=== PATIENT | female | born 1960 | race Caucasian/White ===

== ENCOUNTER 2018-03-21 18:32 | Emergency (ER) | payer OTHER ==
[2018-03-21 19:15] VITALS: BP 179/50; PULSE 66; TEMP 97.8; BMI 56.5
--- NOTE | 2018-03-21 19:52 | PDOC ---
History of Present Illness - General Chief Complaint: Pain Stated Complaint: RIGHT SIDE PAIN Time Seen by Provider: 03/21/18 19:51 History Source: Patient Exam Limitations: No Limitations - History of Present Illness Initial Comments: 57 y/o female presenting to [facility] ER complaining of lower right quadrant abdominal pain, which started spontaneously this morning and has increased in intensity. Unable to recall what she was doing when it started. It now radiates to her right flank/lower back and to the top of the right leg. Pain is made worse with movement. Denies h/o similar. Denies trauma, recent illness, symptoms, or GI symptoms. Normal bowel movements. PCP: Dr. Greer Medical Hx: - COPD - Rapid A-fib s/p ablation - Morbid Obesity s/p gastric bypass Surgical Hx: - Total Hysterectomy - Gastric Bypass, 8-9 years ago at [facility] - Cholecystectomy - Bladder Sling Past History - Past Medical History Allergies/Adverse Reactions: Allergies Allergy/AdvReac Type Severity Reaction Status Date / Time iodine Allergy Severe Verified 03/21/18 19:15 Penicillins Allergy Severe Verified 03/21/18 19:15 shellfish derived Allergy Severe Verified 03/21/18 19:15 Home Medications: Ambulatory Orders Aspirin [ASA -] 81 mg PO DAILY 09/27/13 Diltiazem [Cardizem -] 180 mg PO HS 09/27/13 Fluticasone/Salmeterol [Advair Hfa 115-21 Mcg Inhaler] 1 inh PO PRN PRN Tiotropium [place] [Spiriva -] 1 inh PO PRN PRN 09/27/13 Cholecalciferol (Vitamin D3) [Vitamin D] 1,000 unit PO DAILY 10/18/15 Cyanocobalamin [Vitamin B12 -] 100 mcg PO DAILY 10/18/15 Ferrous Sulfate [Feosol] 325 mg PO DAILY 10/18/15 Oxycodone HCl/Acetaminophen [Percocet 5-325 mg Tablet -] 1 - 2 tab PO Q4H #20 tablet MDD 6 10/22/15 COPD: Yes HTN: Yes - Surgical History Cholecystectomy: Yes - Suicide/Smoking/Psychosocial Hx Smoking History: Never smoked Number of Cigarettes Smoked Daily: 0 Substance Use Type: None Review of Systems - Review of Systems Able to Perform ROS?: Yes Comments:: In addition to that documented in the HPI above, the additional ROS was obtained : Constitutional: Denies fevers or chills Eyes: Denies vision changes ENMT: Denies sore throat CV: Denies acute chest pain Resp: Denies acute SOB GI: Denies vomiting or diarrhea *Physical Exam - Vital Signs Last Vital Signs Temp Pulse Resp BP Pulse Ox 97.8 F 66 18 179/50 H 96 03/21/18 19:13 03/21/18 19:13 03/21/18 19:13 03/21/18 19:13 03/21/18 19:13 - Physical Exam Comments: Constitutional: Well-developed, well-nourished, morbidly obese female in no acute distress or obvious discomfort. Found semi-fowlers in hospital bed. Alert and oriented x4. Answered all questions appropriately and completely. Speech was non-labored, non-pressured. HEENT: Normocephalic. No obvious external signs of trauma. Hearing grossly normal. No nasal discharge. Neck is supple. Cardiovascular: Regular rate and regular rhythm. No murmur, rubs, clicks, or gallops. Peripheral pulses: Radial pulses full. Respiratory: Breathing unlabored. Equal chest rise and fall. Clear to auscultation bilaterally. No stridor, no wheezing, no rhonchi. Gastrointestinal: Exam technically limited secondary to pts obese body habitus with large lower abdominal pannus. Subjective pain to palpation in RLQ without rebound or guarding; reportedly worse by twisting of torso. No overlying skin lesions or obvious signs of trauma. Neuro: Alert and oriented. Moving all four extremities spontaneously. Straight leg test negative. Skin: Warm, dry, and intact. No bruising, rashes, or other lesions. : No R or L CVA tenderness. Psych: Affect: appropriate. Mood: normal. ED Treatment Course - LABORATORY CBC & Chemistry Diagram: 03/21/18 20:52 03/21/18 20:52 Medical Decision Making - Medical Decision Making *Reviewed vital signs, nursing notes, and prior visit documentation (if available). 57 y/o female complaining of RLQ pain now radiating to back and top of R leg. H/ o multiple bowel altering surgeries. Afebrile. Vitals unremarkable for hypotension or tachycardia. Physical exam as described above. Suspect possible msk pain. D/D includes but limited to appendicitis, pyelonephritis, ovarian torsion, pelvic abscess, bowel leak or perforation, colitis. Will obtain CBC, CMP, Lipase, UA, Urine culture, and CT of abdomen and pelvis with IV and PO contrast. Ordered acetaminophen for symptom relief. 03/21/18 23:55 Pt reports iodine allergy. Will change CT order to without IV contrast. 03/21/18 23:58 Pt signed out to resident Dr. Maynard after she was verbally appraised of the pt's HPI and ED course. Will follow up on pending CT scan and pt dispo. *DC/Admit/Observation/Transfer Diagnosis at time of Disposition: Abdominal pain Qualifiers: Abdominal location: right lower quadrant Qualified Code(s): R10.31 - Right lower quadrant pain - Discharge Dispostion Condition at time of disposition: Stable - Referrals Referrals: Doug Greer MD [Primary Care Provider] - - Patient Instructions - Post Discharge Activity
[2018-03-21] MEDS ORDERED: ACETAMINOPHEN 500 MG TABLET (FP) PO ONE (20:46)
[2018-03-21 20:48] LABS: URINE APPEARANCE SLCLOUDY; URINE BILIRUBIN NEGATIVE (<2.0 mg/dL); URINE COLOR LTYELLOW; URINE GLUCOSE (UA) NEGATIVE (NEGATIVE); URINE KETONE NEGATIVE (NEGATIVE); URINE LEUK ESTERASE 1+ (NEGATIVE); URINE NITRITE POSITIVE (NEGATIVE); URINE PROTEIN NEGATIVE (NEGATIVE); URINE UROBILINOGEN NEGATIVE mg/dL (0.2-1.0)
[2018-03-21] MEDS ORDERED: ACETAMINOPHEN 325 MG TABLET (FP) ONE (20:52)
--- NOTE | 2018-03-21 20:53 | PDOC ---
Attending Attestation - HPI HPI: This patient is a 57 year old female with PMHx of COPD, HTN, sleep apnea, cholecystectomy, gastric bypass, tubal ligation, who presents to the ER with RLQ pain today. Patient states her abdominal pain began spontaneously this morning and has progressively worsened, radiates to her back and upper right leg , worse with movement and better with rest. She denies any urinary symptoms, denies any nausea, vomiting, diarrhea, or hematochezia. PCP: Dr. Sapp <Susan Young - Last Filed: 03/21/18 21:02> - Resident Resident Name: Derrick Morgan - ED Attending Attestation I have performed the following: I have examined & evaluated the patient, The case was reviewed & discussed with the resident, I agree w/resident's findings & plan, Exceptions are as noted - Physicial Exam PE: 03/22/18 00:48 awake alert lungs clear bilaterally heart rr no mrg abd obese, mild rlq ttp.no palp tenderness. ext wwp no edema. no calf tenderness. skin warm and dry. - Medical Decision Making 03/22/18 00:49 57yo F h/o obesity, prior cholecystectomy, gastric bypass, here with c/o rlq pain. differential appy, hernia, uti pyleo, plan ct a/p labs. pt on reassessment, awaiting ct results eating pretzels, no discomfort. labs unremarkable. 03/22/18 01:[address] a/p unremarkable. appendix not visualized. labs normal. tolerating po. dc home with fu. gi. <Fabienne Calderon - Last Filed: 03/22/18 01:21>
[2018-03-21 21:12] LABS: EPI CELLS FEW /HPF (FEW); URINE BACTERIA FEW /hpf (NONE SEEN); URINE MUCUS RARE
[2018-03-21 21:14] LABS: BASO % 1.2 % (0-2.0); EOS % 2.1 % (0-4.5); HEMATOCRIT 31.1 % (32.4-45.2); HEMOGLOBIN 9.9 GM/dL (10.7-15.3); LYMPH % 32.5 % (8-40); MCH 26.4 pg (25.7-33.7); MEAN CELL VOLUME 82.6 fl (80-96); MEAN PLT VOLUME 8.5 fl (7.5-11.1); NEUT % 56.2 % (42.8-82.8); PLATELET COUNT 343 K/MM3 (134-434); RBC 3.76 M/mm3 (3.60-5.2); RDW 17.3 % (11.6-15.6); WHITE BLOOD COUNT 6.3 K/mm3 (4.0-10.0)
[2018-03-21 21:33] LABS: ALBUMIN 3.2 g/dl (3.4-5.0); ALK PHOS 73 U/L (45-117); ANION GAP 7 MMOL/L (8-16); BILIRUBIN,TOTAL 0.2 mg/dL (0.2-1); BLOOD UREA NITROGEN 18 mg/dL (7-18); CALCIUM 8.7 mg/dL (8.5-10.1); CHLORIDE 104 mmol/L (98-107); CO2 28 mmol/L (21-32); CREATININE 0.8 mg/dL (0.55-1.3); GLUCOSE,RANDOM 85 mg/dL (74-106); SGOT/AST 21 U/L (15-37); SGPT/ALT 25 U/L (13-61); SODIUM 138 mmol/L (136-145); TOT PROT 7.4 g/dl (6.4-8.2)
--- NOTE | 2018-03-22 00:51 | PDOC ---
*Physical Exam - Vital Signs Last Vital Signs Temp Pulse Resp BP Pulse Ox 97.8 F 66 18 179/50 H 96 03/21/18 19:13 03/21/18 19:13 03/21/18 19:13 03/21/18 19:13 03/21/18 19:13 - Physical Exam General Appearance: Yes: Nourished, Obese Respiratory/Chest: positive: Lungs Clear Cardiovascular: positive: Regular Rhythm, Regular Rate, S1, S2 Gastrointestinal/Abdominal: positive: Tender (RLQ), Other (obese; pannus large) ED Treatment Course - LABORATORY CBC & Chemistry Diagram: 03/21/18 20:52 03/21/18 20:52 - ADDITIONAL ORDERS Additional order review: Laboratory Results 03/21/18 03/21/18 03/21/18 20:52 20:52 20:34 Sodium 138 Potassium 4.0 Chloride 104 Carbon Dioxide 28 Anion Gap 7 L BUN 18 Creatinine 0.8 Creat Clearance w eGFR > 60 Random Glucose 85 Lactic Acid 0.4 Calcium 8.7 Total Bilirubin 0.2 AST 21 ALT 25 Alkaline Phosphatase 73 Total Protein 7.4 Albumin 3.2 L Urine Color Urine Appearance Urine pH Ur Specific [place] Urine Protein Urine Glucose (UA) Urine Ketones Urine Blood Urine Nitrite Urine Bilirubin Urine Urobilinogen Ur Leukocyte Esterase Urine WBC (Auto) Urine RBC (Auto) Ur Epithelial Cells Urine Bacteria Urine Mucus Urine HCG, Qual Negative 03/21/18 20:34 Sodium Potassium Chloride Carbon Dioxide Anion Gap BUN Creatinine Creat Clearance w eGFR Random Glucose Lactic Acid Calcium Total Bilirubin AST ALT Alkaline Phosphatase Total Protein Albumin Urine Color Ltyellow Urine Appearance Slcloudy Urine pH 6.0 Ur Specific [place] 1.012 Urine Protein Negative Urine Glucose (UA) Negative Urine Ketones Negative Urine Blood Negative Urine Nitrite Positive Urine Bilirubin Negative Urine Urobilinogen Negative Ur Leukocyte Esterase 1+ H Urine WBC (Auto) 3 Urine RBC (Auto) 1 Ur Epithelial Cells Few Urine Bacteria Few Urine Mucus Rare Urine HCG, Qual 03/21/18 20:52 RBC 3.76 MCV 82.6 MCHC 32.0 RDW 17.3 H MPV 8.5 Neutrophils % 56.2 Lymphocytes % 32.5 D Monocytes % 8.0 Eosinophils % 2.1 Basophils % 1.2 - Medications Given in the ED: ED Medications Discontinued Medications Generic Name Dose Route Start Last Admin Trade Name Freq PRN Reason Stop Dose Admin Acetaminophen 975 mg 03/21/18 20:46 03/21/18 21:06 Tylenol - PO 03/21/18 20:47 975 mg ONCE ONE Administration Medical Decision Making - Medical Decision Making This is a 57 year old female with a history of COPD, atrial fibrillation s/p ablation, morbid obesity, presenting with RLQ abdominal pain. CT pending for acute abdominal/pelvic pathology. 03/22/18 01:25 CT abdomen and pelvis with oral contrast; -Impression: mild nonspecific wall thickening of the stomach with fatty infiltration most likely due to gastritis with gastric wall atrophy. Diverticulosis of the colon without diverticulitis. Moderate degenerative disc disease; mod to severe degenerative joint disease of lower lumbar facets. -will dc home with instructions for antacids; f/u with GI; avoid spicy foods, alcohol; -f/u with primary and GI *DC/Admit/Observation/Transfer Diagnosis at time of Disposition: Abdominal pain Qualifiers: Abdominal location: right lower quadrant Qualified Code(s): R10.31 - Right lower quadrant pain - Discharge Dispostion Disposition: HOME Condition at time of disposition: Stable - Referrals Referrals: Doug Greer MD [Primary Care Provider] - Angelique aHnson MD [Staff Physician] - - Patient Instructions Printed Discharge Instructions: Acute Abdominal Pain Additional Instructions: your ct of your abdomen was normal. you should follow up with a claims technician call to schedule. see referral for dr. kiran. return for any worsening pain, vomiting or any concerns. your labs and urinalysis were also normal. - Post Discharge Activity
--- NOTE | 2018-03-22 07:03 | PN ---
Teaching Attending Note Name of Resident: Chauncey Danielle ATTENDING PHYSICIAN STATEMENT I saw and evaluated the patient. I reviewed the resident's note and discussed the case with the resident. I agree with the resident's findings and plan as documented. SUBJECTIVE: OBJECTIVE: ASSESSMENT AND PLAN:
== END 2018-03-22 01:37 | disposition home or self-care (01) ==
LOC: JER 18:32
DX: R10.31 Right lower quadrant pain (principal); I10 Essential (primary) hypertension; J44.9 Chronic obstructive pulmonary disease, unspecified; G47.30 Sleep apnea, unspecified; E66.01 Morbid (severe) obesity due to excess calories; Z68.43 Body mass index [BMI] 50.0-59.9, adult; Z88.0 Allergy status to penicillin; Z91.013 Allergy to seafood; Z91.041 Radiographic dye allergy status
CPT/HCPCS: 36415; 74176-TC; 80053; 81003; 81015; 83605; 84703; 85025; 87086; 87186; 99282-25